=== PATIENT | female | born 1945 | race Caucasian/White ===

== ENCOUNTER 2017-01-28 05:24 | Inpatient (IN) ==
[2017-01-28 06:22] LABS: BASO% 1.8 % (0.0-0.8); EOS# 0.27 X1000 (0.0-0.7); EOS% 15.9 % (0.0-10.0); HEMATOCRIT 25.4 % (37.0-47.0); HEMOGLOBIN 8.3 g/dL (12.0-16.0); LYMPH# 0.26 X1000 (1.2-3.4); LYMPH% 15.3 % (20.5-51.1); MANUAL DIFF NEEDED? NO; MCHC 32.7 g/dL (33-37); MCV 91.7 FL (81-99); MONO# 0.41 X1000 (0.11-0.59); MONO% 24.1 % (1.7-9.3); MPV 10.4 FL (7.4-10.4); NEUT% 42.9 % (42.2-75.2); PLT 240 X1000 (130-400); RBC 2.77 XMIL (4.2-5.4)
[2017-01-28 06:27] LABS: ALBUMIN 3.9 g/dL (3.5-5.0); CALCIUM 9.1 mg/dL (8.8-10.2); POTASSIUM 4.9 mmol/L (3.5-5.1); TOTAL BILIRUBIN 0.25 mg/dL (0.20-1.00); TOTAL PROTEIN 6.6 g/dL (6.3-8.3)
[2017-01-28 07:34] LABS: URINE CULTURE NEEDED? NO; URINE MICRO REVIEW NEEDED? NO; URINE SOURCE CATH
[2017-01-28 07:37] LABS: BILIRUBIN URINE NEGATIVE (NEGATIVE); BLOOD URINE NEGATIVE (NEGATIVE); COLOR YELLOW; GLUCOSE URINE NEGATIVE (NEGATIVE); LEUKOCYTES URINE NEGATIVE (NEGATIVE); NITRITE URINE NEGATIVE (NEGATIVE); PROTEIN URINE TRACE mg/dL (NEGATIVE); SP GRAVITY URINE 1.007; TURBIDITY URINE CLEAR (CLEAR); UROBILINOGEN URINE NORMAL (NORMAL)
[2017-01-28 07:39] LABS: UR EPITHELIAL CELLS <10 /HPF (<10); URINE BACTERIA NEGATIVE /HPF; URINE RBC <10 /HPF (<10); URINE WBC <10 /HPF (<10)
--- NOTE | 2017-01-28 08:18 | Diag Imaging Result Doc PS360 ---
EXAM: CHEST-PORTABLE HISTORY: weakness TECHNIQUE: AP portable upright at 0815 COMMENT: The inspiration is better than on 11/09/2016. There is a Port-A-Cath on the right. IMPRESSION: No acute disease. Electronically signed by [place] Castillo 01/28/2017 8:16 AM
[2017-01-28 08:37] LABS: IRON SATURATION 14 %; TIBC 217 ug/dL; TOTAL IRON 31 ug/dL (49-151); UNBOUND IRON 186 ug/dL (112-346)
[2017-01-28 09:03] LABS: FERRITIN 1425 ng/mL (13-150)
[2017-01-28] MEDS ORDERED: LEVAQUIN 500 MG in NS 100 ML IV ONE (10:12)
[2017-01-28] MEDS ORDERED: NEUPOGEN SUBQ ONE (10:13)
[2017-01-28] MEDS ORDERED: GRANIX SUBQ ONE (10:30)
[2017-01-28] MEDS ORDERED: TYLENOL PO PRN (10:32)
[2017-01-28] MEDS ORDERED: ZOFRAN IV PRN (10:32)
[2017-01-28] MEDS ORDERED: PHENERGAN PO PRN (10:32)
[2017-01-28] MEDS ORDERED: PREDNISONE PO SCH (10:32)
[2017-01-28] MEDS: PRILOSEC PO SCH (10:32)
[2017-01-28] MEDS ORDERED: REGLAN PO PRN (10:32)
[2017-01-28] MEDS: PATIENT'S OWN MED PO SCH (11:00)
[2017-01-28] MEDS: CARAFATE PO SCH ×3 (11:00→17:15)
[2017-01-28] MEDS: ASPIRIN PO SCH (11:00)
[2017-01-28] MEDS: HUMALOG SUBQ SCH ×3 (11:00→21:00)
[2017-01-28] MEDS: PEPCID PO SCH ×2 (11:00→23:39)
[2017-01-28] MEDS: FOLTX PO SCH (11:00)
[2017-01-28] MEDS: VITAMIN B-12 PO SCH (11:00)
[2017-01-28] MEDS: THERA M PLUS PO SCH (11:00)
[2017-01-28] MEDS: CALTRATE 600 PO SCH ×2 (11:00→23:40)
[2017-01-28] MEDS: ZINC SULFATE PO SCH ×2 (11:00→23:39)
[2017-01-28] MEDS: NS 1,000 ML IV SCH (12:42)
--- NOTE | 2017-01-28 16:03 | Diag Imaging Result Doc PS360 ---
EXAM: MRI BRAIN W/O CONTRAST - 01/28/2017 HISTORY: stroke like symptoms TECHNIQUE: Without contrast COMPARISON: None. FINDINGS: There is no evidence of hemorrhage, mass effect, midline shift, or hydrocephalus. There is a 3 mm area of mildly increased signal on FLAIR and T2-weighted images at the left upper kelli. This does not demonstrate restricted diffusion on the diffusion weighted images, compatible with old lacunar infarct. There are no other substantial signal abnormalities identified. The diffusion weighted images show no areas of restricted diffusion (no evidence of acute infarct). There is a 1.3 cm mucous retention cyst noted in the left maxillary sinus. 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 No visible acute intracranial abnormality. Electronically signed by Yonathan Tan 01/28/2017 4:01 PM
--- NOTE | 2017-01-28 16:10 | Diag Imaging Result Doc PS360 ---
EXAM: MRA BRAIN W/O CONTRAST - 01/28/2017 HISTORY: stroke like symptoms TECHNIQUE: Without contrast. [id number] MR angiogram of the intracranial circulation with reconstructed 3-D rotating MIP images. COMPARISON: None. FINDINGS: There is no major intracranial arterial occlusion identified. The bilateral posterior cerebral arteries appear to receive most of their supply from the respective bilateral internal carotid arteries via the posterior communicating arteries. This is likely long-standing and may relate to congenital variant. There is no other substantial stenosis of a major intracranial artery identified. There is no aneurysm identified. IMPRESSION: Essentially unremarkable exam. Electronically signed by Yonathan Tan 01/28/2017 4:08 PM
[2017-01-28] MEDS ORDERED: IMDUR PO SCH (21:00)
[2017-01-28] MEDS: LOPRESSOR PO SCH (23:39)
[2017-01-29] MEDS: NS 1,000 ML IV SCH ×2 (00:08→04:30)
[2017-01-29] MEDS: HUMALOG SUBQ SCH ×3 (06:36→16:34)
[2017-01-29 07:40] LABS: BASO% 0.6 % (0.0-0.8); EOS# 0.44 X1000 (0.0-0.7); EOS% 8.8 % (0.0-10.0); HEMATOCRIT 29.7 % (37.0-47.0); HEMOGLOBIN 9.8 g/dL (12.0-16.0); IMM GRAN# 0.02 X1000 (0.0-0.04); IMM GRAN% 0.4 % (0.0-0.5); LYMPH# 0.38 X1000 (1.2-3.4); LYMPH% 7.6 % (20.5-51.1); MANUAL DIFF NEEDED? YES; MCH 29.8 PG (27-31); MCV 90.3 FL (81-99); MONO# 0.77 X1000 (0.11-0.59); MONO% 15.4 % (1.7-9.3); MPV 10.1 FL (7.4-10.4); NEUT% 67.2 % (42.2-75.2); PLT 219 X1000 (130-400); RBC 3.29 XMIL (4.2-5.4)
[2017-01-29 07:55] LABS: ALBUMIN 3.3 g/dL (3.5-5.0); CALCIUM 8.9 mg/dL (8.8-10.2); TOTAL BILIRUBIN 0.51 mg/dL (0.20-1.00); TOTAL PROTEIN 5.7 g/dL (6.3-8.3)
[2017-01-29 08:06] LABS: HEMOGLOBIN A1C 4.9 % (4.8-6.0)
[2017-01-29 08:13] LABS: INR 1.21; PROTIME 12.9 Seconds (9.2-11.7); PTT 32.2 Seconds (22.0-36.0)
[2017-01-29 08:19] LABS: BANDS 24 % (0-1); EOS 4 % (1-10); LYMPHS 12 % (21-51); MONO 16 % (1-9)
[2017-01-29 08:23] LABS: MAGNESIUM 0.7 mg/dL (1.5-2.7)
[2017-01-29] MEDS ORDERED: GLUCOTROL XL PO SCH (09:00)
[2017-01-29] MEDS ORDERED: NEUPOGEN SUBQ SCH (09:00)
[2017-01-29] MEDS ORDERED: MAGNESIUM SULFATE 1 GM/D5W 1 GM/100 ML IVPB IV ONE (09:29)
[2017-01-29] MEDS: CALTRATE 600 PO SCH (10:00)
[2017-01-29] MEDS: THERA M PLUS PO SCH (10:00)
[2017-01-29] MEDS: ZINC SULFATE PO SCH (10:00)
[2017-01-29] MEDS: ASPIRIN PO SCH (10:00)
[2017-01-29] MEDS: PEPCID PO SCH (10:00)
[2017-01-29] MEDS: VITAMIN B-12 PO SCH (10:00)
[2017-01-29] MEDS: LOPRESSOR PO SCH (10:01)
[2017-01-29] MEDS: CARAFATE PO SCH ×2 (10:02→13:35)
[2017-01-29] MEDS ORDERED: LEVAQUIN 500 MG in NS 100 ML IV SCH (10:15)
[2017-01-29] MEDS: PATIENT'S OWN MED PO SCH (11:17)
[2017-01-29] MEDS: FOLTX PO SCH (11:17)
[2017-01-29] MEDS: PRILOSEC PO SCH (11:17)
[2017-01-29 13:51] VITALS: BP 139/91
== END 2017-01-29 16:36 | disposition home or self-care (01) ==
LOC: ED 05:24 → SUATTDRO 08:38 → EDIPHOLD 08:38 → 3N 14:44
PROVIDERS: ATTEND Internal Medicine